=== PATIENT | male | born 1990 | race Caucasian/White ===

== ENCOUNTER 2017-07-26 12:38 | Emergency (ER) | payer BC ==
[2017-07-26] MEDS ORDERED: IBUPROFEN 600 MG TABLET PO ONE ×2 (13:30→13:31)
[2017-07-26 16:34] LABS: MONOTEST NEGATIVE (NEGATIVE)
== END 2017-07-26 17:10 | disposition home or self-care (01) ==
LOC: ER 12:40
DX: J02.9 Acute pharyngitis, unspecified (principal)
CPT/HCPCS: 36415; 86308-TC; 86403-TC; 87070-TC; 87400